=== PATIENT | male | born 1965 | race Caucasian/White ===

== ENCOUNTER 2018-11-26 01:14 | Emergency (ER) | payer OTHER ==
[~2018-11-26] VITALS: Ht 180.3 cm; Wt 74.8 kg
--- NOTE | 2018-11-26 01:18 | NUR ---
PT TAKEN TO BED 11
[2018-11-26 01:20] VITALS: BP 147/87
--- NOTE | 2018-11-26 01:22 | NUR ---
Pt presents to ED with complaints of left elbow pain since a work related injury on 10/13/18. Patient states he had a fall while at work, and was sent to a clinic for evaluation. Pt states he had x-ray done at the clinic and was cleared back to work but patient does not agree and wants a second opinion. Pt states they told him he had a "bony tumor" on the x-ray and patient unable to fully extend the arm like he was able to prior to injury. Pt also c/o numbness and tingling intermittently to left hand. Pt states prior to fall he did not have any problems with his elbow. Pt c/o 03/17 pain. VSS. Denies medical hx.
--- NOTE | 2018-11-26 01:29 | NUR ---
X-Ray at bedside.
[2018-11-26 03:00] VITALS: BP 138/84
== END 2018-11-26 03:00 | disposition home or self-care (01) ==
LOC: MED 01:14
DX: S42.402A Unspecified fracture of lower end of left humerus, initial encounter for closed fracture (principal); Z88.1 Allergy status to other antibiotic agents; W19.XXXA Unspecified fall, initial encounter; Y93.89 Activity, other specified; Y92.89 Other specified places as the place of occurrence of the external cause; Y99.8 Other external cause status
CPT/HCPCS: 29105; 73080; 99283; Q0092